=== PATIENT | female | born 1950 | race Caucasian/White ===

== ENCOUNTER → 2025-01-26 | Outpatient (CLI) | payer MEDICARE, SELFPAY ==
--- NOTE | 2025-01-26 | XR_ITS ---
Examination: Lumbar spine 4 views TECHNIQUE: AP, lateral, AP standing lateral flexion standing lateral extension 4 views Exam date and time: January 26, 2025 1240 hours INDICATIONS: Scoliosis since childhood back surgery 2022 FINDINGS: Transpedicular thoracolumbar stabilization Severe osteopenia Lumbar levoscoliosis 29 degrees No acute fracture Moderate thoracic spondylosis IMPRESSION: Extensive transpedicular thoracolumbar stabilization Severe osteopenia Lumbar levoscoliosis 29 degrees
--- NOTE | 2025-01-26 | XR_ITS ---
Examination: Thoracic spine 3 views Technique one AP lateral coned lateral upper dorsal spine 3 views Exam date and time: January 26, 2025 1239 hours INDICATIONS: Childhood history scoliosis back surgery 2022 FINDINGS: Severe osteopenia Thoracic dextroscoliosis 20 degrees Transpedicular extensive stabilization procedure the lower end of which is not included on these films Diffuse moderate thoracic degenerative disc disease IMPRESSION: Thoracic dextroscoliosis 20 degrees Diffuse moderate thoracic degenerative disc disease
--- NOTE | 2025-01-26 10:49 | XR_ITS ---
Examination:Right hip AP, lateral, AP pelvis 3 views Technique: Hip AP lateral, AP pelvis, 3 views Exam date and time:January 26, 2025 1120 hours INDICATIONS: Right hip pain 2 years. FINDINGS: Significant osteopenia Total right hip arthroplasty. Satisfactory alignment. No loosening of the prosthetic components IMPRESSION: Total right hip arthroplasty with satisfactory alignment.
--- NOTE | 2025-01-26 10:49 | XR_ITS ---
Examination: Lumbar spine 3 views TECHNIQUE: AP lateral coned lateral lower lumbar spine 3 views Exam date and time: January 26, 2025 at 1120 hours Comparison August 20, 2023 INDICATIONS: Scoliosis with back surgery 2022 FINDINGS: Severe osteopenia Lumbar levoscoliosis 31 degrees Extensive transpedicular stabilization with chronic deformities lower 3 lumbar levels No acute fracture No sunil cortical bone destruction Total right hip arthroplasty Plates over the right SI joint IMPRESSION: Severe osteopenia Lumbar levoscoliosis 31 degrees Extensive transpedicular thoracolumbar stabilization with adequate alignment
== END | disposition home or self-care (01) ==
PROVIDERS: PCP Physician Assistant; Referring Provider Orthopaedic Surgery Adult Reconstructive Orthopaedic Surgery; Visit Provider Neurological Surgery
DX: M85.88 Other specified disorders of bone density and structure, other site (principal); M41.86 Other forms of scoliosis, lumbar region; M25.551 Pain in right hip; Z96.641 Presence of right artificial hip joint; M41.84 Other forms of scoliosis, thoracic region; M51.34 Other intervertebral disc degeneration, thoracic region
CPT/HCPCS: 72072; 72100; 72120; 73502

== ENCOUNTER 2025-02-02 08:51 | Outpatient (AMB) | payer MEDICARE, SELFPAY ==
--- NOTE | 2025-02-02 09:08 | PD.ORTHCLVIS ---
Vital signs 02/02/25 09:09 Height 1.52 m Height Method Stated Weight 67.33 kg Weight Measurement Method Standing Scale BMI 29.0 BP 159/82 H Blood Pressure Source Automatic Cuff Blood Pressure Location Right Upper Arm Position Sitting Respiration 19 Pulse 67 Pulse Source Monitor Temp 97.4 F Temp Source Temporal Artery Scan Pulse Oximetry (%) 97 Oxygen Delivery Method Room Air Med/Allergies Allergies & Medications Allergies codeine Allergy (Intermediate, Verified 02/02/25 09:10) Vomiting Medication Reconciliation CHOLECALCIFEROL (VITAMIN D3) (VITAMIN D) 1 tab PO QDAY ##0 12/03/17 [History Confirmed 02/02/25] Vitamin B Complex 1 tab PO QDAY ##0 12/03/17 [History Confirmed 02/02/25] escitalopram oxalate 10 mg tablet (Lexapro) 10 mg PO HS #0 tabs 12/03/17 [History Confirmed 02/02/25] pregabalin 150 mg capsule (Lyrica) 150 mg PO BID ##90 12/03/17 [History Confirmed 02/02/25] doxycycline hyclate 100 mg capsule 100 mg PO BID #7 caps 04/23/23 [Rx Confirmed 02/02/25] nystatin-triamcinolone 100,000 unit/g-0.1 % topical cream 1 applic topical BID #60 grams 04/23/23 [Rx Confirmed 02/02/25] ibuprofen 600 mg tablet 600 mg PO Q8H PRN fever or pain #30 tabs 09/05/24 [Rx Confirmed 02/02/25] methylprednisolone 4 mg tablets in a dose pack (Medrol ([employer])) See Rx Instructions PO PER PKG DIR #21 tabs 02/02/25 [Rx] Exam Exam Patient is in no acute distress and is cooperative with the examination today. Patient has a normal mood and affect. Breathing is nonlabored. In no respiratory distress. Bilateral extremities were evaluated and demonstrates sensation intact to light touch. Palpable pedal pulses are present. No significant edema is present. Right hip demonstrates preserved range of motion. Incision is clean dry and intact. Leg lengths are equal. She has pain with flexion. She has no pain with logroll Left hip demonstrates preserved range of motion. She can internally rotate 20 degrees. Left knee is tender to palpation Assessment and Plan Problem List (1) Pain in left knee: Status: Acute Plan: Patient is a pleasant 74-year-old female with a left knee and right hip pain. We discussed different treatment options. I would first like to obtain x-rays of the left knee. The right hip actually looks good on x-rays. There is a dual mobility hip and is in good alignment position with no lucencies. The left knee demonstrates total knee replacement with a posterior stabilized implant in good alignment position. I do not see any evidence of lucent lines (2) Right hip pain: Status: Acute Advanced Care Planning Discussion Advance care planning discussed with:: patient MA Intake Visit Data Collection New Patient or Established: Established Patient (seen at [facility] [place] Reason for Visit:: RIGHT HIP PAIN AND LEFT KNEE PAIN Technician Chemical Cleaning Required: No Do You Feel Safe at Home: Yes Questionairres Past Medical History Past Medical History Have you ever been diagnosed with any of the following: Neurological Problems Seizures: No Migraine: No Cardiology Problems Congestive Heart Failure: No Hypertension: No Hypotension: No Respiratory Problems Chronic Obstructive Pulmonary Disease (COPD): Yes Asthma: No Sleep Apnea: No Smoking: No Smoking Exposure: No Genital/Urinary Problems Renal Disease: No Musculoskeletal Problems Arthritis: Yes Scoliosis: Yes Endocrine Problems Diabetes Mellitus Type 1: No Diabetes Mellitus Type 2: No Other Problems Blood Transfusions: No Blood Transfusion Reaction: No Anesthesia Reactions: No Cancer: No Surgical History Total Hip Replacement: Yes (RIGHT CRISELDA) Total Knee Replacement: Yes (LEFT TKA ) Subjective Visit Visit for: new patient, hip and knee Immunization / Flu Flu Vaccine in the Last 12 Months: Yes Flu Vaccine Exclusion Criteria: Already Received History of Present Illness Chief complaint: RIGHT HIP PAIN AND LEFT KNEE PAIN Lydai is a pleasant 74-year-old female with a history of severe scoliosis with multiple surgeries. She had a right total hip replacement as well as a left total knee replacement. She reports that both are hurting. She does not have any pain in the groin but she has pain with resisted flexion. For her knee she will also reports that there is some pain and was done 4 years ago. Personal History Red flag PMH: none BMI Counceling provided: Yes Pain Pain level (0-10): 10 Pain duration: CONSTANT Pain quality: sharp and tingling Pain timing: increases with activity Associated signs & symptoms: none Ambulatory data Ambulatory device: cane Treatments Improvement with previous injections: No Improvement with PT: Yes Improvement with NSAIDS: yes Review of Systems Review of Systems: All systems negative unless otherwise noted in HPI.
[2025-02-02 09:09] VITALS: BP 159/82; PULSE 67; RESP 19; TEMP 36.3; O2SAT 97; BMI 29.0
--- NOTE | 2025-02-02 09:24 | XR_ITS ---
Examination: Bilateral AP knees single view Left lateral knee axial left knee 2 views Exam technique: Bilateral AP knees standing single view Left lateral knee axial left knee 2 views total 3 views Exam date and time: February 02, 2025 0940 hours INDICATIONS: Patient fell 2 months ago with injury to the left knee, left knee pain FINDINGS: Moderate osteopenia Total left knee arthroplasty Satisfactory alignment No fracture involving either right or left knee IMPRESSION: No fracture involving either right or left knee
== END 2025-02-02 10:14 | disposition home or self-care (01) ==
LOC: HODSRG 08:52
PROVIDERS: PCP Physician Assistant; Referring Provider Physician Assistant; Supervising Provider Orthopaedic Surgery Adult Reconstructive Orthopaedic Surgery; Visit Provider Orthopaedic Surgery Adult Reconstructive Orthopaedic Surgery
DX: M25.562 Pain in left knee (principal); M25.551 Pain in right hip; M41.9 Scoliosis, unspecified
CPT/HCPCS: 73564; 99213; G0463

== ENCOUNTER → 2025-02-17 | Outpatient (CLI) | payer MEDICARE, SELFPAY ==
--- NOTE | 2025-02-17 10:26 | XR_ITS ---
Examination: PA lateral chest 2 views Technique: Upright PA lateral chest 2 views Exam date and time: February 17, 2025 1037 hrs. Comparison February 14, 2024 Indications: Shortness of breath beginning 2 years ago, 30 year smoking history. Findings: Normal heart size Mild scarring at the lung bases Extensive thoracolumbar transpedicular stabilization No pneumonia or pulmonary edema Impression: Suspicious for early pulmonary fibrosis at the lung bases, consider high resolution CT chest without contrast follow-up
[2025-02-17 11:05] LABS: Collection Type, Urine Clean Catch
[2025-02-17 11:38] LABS: Basophils # (Auto) 0.1 Thou/mm3 (0.0-0.2); Basophils % (Auto) 2 % (0-2.5); Eosinophils # (Auto) 0.2 Thou/mm3 (0.0-0.5); Eosinophils % (Auto) 4 % (0-10); Hematocrit 35.2 % (36.0-46.0); Hemoglobin 11.4 g/dL (12.0-16.0); Immature Granulocytes % (Auto) 1 % (0-0); Immature Granulocytes Auto 0.03 Thou/mm3 (0.00-0.00); Lymphocytes # (Auto) 1.6 Thou/mm3 (1.0-4.8); Lymphocytes % (Auto) 25 % (10-50); Mean Corpuscular HGB Conc 32.4 g/dl (31.0-37.0); Mean Corpuscular Hemoglobin 31.1 pg (25.0-35.0); Mean Corpuscular Volume 96 fL (80-100); Monocytes # (Auto) 0.6 Thou/mm3 (0.0-0.8); Monocytes % (Auto) 8 % (0-12); Neutrophils % (Auto) 61 % (37-80); Nucleated Red Blood Cell % 0 /100 WBC (0); Platelet Count 211 Thou/mm3 (140-440); RDW Standard Deviation 51.7 fL (36.4-46.3); Red Blood Count 3.67 Miln/mm3 (4.00-5.20); White Blood Count 6.5 Thou/mm3 (3.6-11.0)
[2025-02-17 11:39] LABS: Bilirubin,Urine Negative (Negative); Blood,Urine Negative (Negative); Clarity,Urine Clear (Clear/Hazy); Color,Urine Yellow (Lt Yel-Yel); Glucose, Urine Negative (Negative); Ketones,Urine Negative (Negative); Leukocyte Esterase,Urine Positive (Negative); Nitrite,Urine Negative (Negative); Protein,Urine Trace (Neg - Trace); RBC,Urine 4 /hpf (0-3); Specific Gravity,Urine 1.026 (1.001-1.035); Squamous Epithelial Cell,Urine 5 /hpf (0-5); Urobilinogen,Urine Negative mg/dL (0.0-1.0); WBC,Urine 5 /hpf (0-5)
[2025-02-17 11:50] LABS: Glucose Estimated Average 120 mg/dL (80-131); Hemoglobin A1C 5.8 % Hgb (4.8-6.0)
[2025-02-17 11:56] LABS: Creatinine MALB Rnd Ur 165 mg/dL (30-125); Microalbumin Creat Ratio 7 mg/gCrea (<30); Microalbumin, Random Urine 11 mg/L (0-300)
[2025-02-17 12:00] LABS: Cardiac Risk Estimate 3.8 RATIO (3.7-5.6); Cholesterol 233 mg/dL (132-200); Free T4 (Free Thyroxine) 1.12 ng/dL (0.89-1.76); HDL Cholesterol 62 mg/dL (40-60); LDL Cholesterol,Calculated 145 mg/dL (0-130); Thyroid Stimulating Hormone 1.69 uIU/mL (0.55-4.78); Triglycerides 131 mg/dL (30-150)
[2025-02-17 12:07] LABS: Vitamin B12 291 pg/mL (211-911)
[2025-02-17 12:23] LABS: Vitamin D 25 Hydroxy Total 29.2 ng/mL (7.3-40.2)
== END | disposition home or self-care (01) ==
LOC: CDIM 10:01 → COPL 10:46
PROVIDERS: PCP Family Medicine; Referring Provider Physician Assistant; Visit Provider Radiology Diagnostic Radiology
DX: R06.02 Shortness of breath (principal); E78.5 Hyperlipidemia, unspecified; E55.9 Vitamin D deficiency, unspecified; R53.83 Other fatigue
CPT/HCPCS: 36415; 71046; 80061; 81001; 82043; 82306; 82570; 82607; 83036; 84439; 84443; 85025

== ENCOUNTER → 2025-03-09 | Outpatient (CLI) | payer MEDICARE, SELFPAY ==
[2025-03-09 12:05] LABS: Albumin, Serum 4.4 gm/dL (3.4-4.8); Anion Gap 12 (7-16); BUN/Creatinine Ratio 15 Ratio (12-20); Blood Urea Nitrogen 19 mg/dL (9-23); Calcium 10.1 mg/dL (8.3-10.6); Calcium (Corrected) 10.1 mg/dL (8.5-10.1); Carbon Dioxide 23.3 mMol/L (20.0-31.0); Chloride 109 mMol/L (98-107); Creatinine (Component) 1.3 mg/dL (0.6-1.3); Glucose 88 mg/dL (74-106); Osmolality,Calculated 288 (275-295); Sodium 144 mMol/L (136-145); eGFR 44 See Note
== END | disposition home or self-care (01) ==
LOC: COPL 10:53
PROVIDERS: PCP Physician Assistant; Referring Provider Neurological Surgery; Visit Provider Neurological Surgery
DX: Z01.818 Encounter for other preprocedural examination (principal)
CPT/HCPCS: 36415; 80069

== ENCOUNTER → 2025-03-10 | Outpatient (CLI) | payer MEDICARE, SELFPAY ==
--- NOTE | 2025-03-10 09:47 | XR_ITS ---
Examination: CT lumbar spine, without contrast. 2-D sagittal reconstructions. 2-D coronal reconstructions. 3-D reconstructions. Date and time of exam:March 10, 2020 5:10 AM Comparison October 31, 2008 INDICATIONS: Chronic lower back pain 15 back surgeries CTDI: vol (mGy):25.2 DLP: (mGycm):1080 Technique: Multiple 1.25 mm axial sections of the lumbar spine without intravenous contrast have been obtained. 2-D sagittal and coronal reconstructions have been obtained. 3-D reconstructions have been obtained. Low dose protocols were performed. One or more of the following dose reduction techniques were used; automated exposure control, adjustment of the mA and/or KV according to patient size, use of iterative reconstruction technique. Findings: Severe osteopenia Extensive transpedicular thoracic lumbar stabilization extending to the sacrum Severe short angle lower lumbar levoscoliosis 35 degrees No acute vertebral body fracture Axial images demonstrate no focal lumbar disc protrusion Study is limited by significant artifact from the orthopedic fixation devices IMPRESSION: Severe osteopenia Extensive transpedicular thoracic lumbar stabilization extending to the sacrum Severe short angle lower lumbar levoscoliosis 35 degrees No acute vertebral body fracture
== END | disposition home or self-care (01) ==
PROVIDERS: PCP Physician Assistant; Referring Provider Neurological Surgery; Visit Provider Neurological Surgery
DX: M85.88 Other specified disorders of bone density and structure, other site (principal)
CPT/HCPCS: 72131

== ENCOUNTER → 2025-03-13 | Outpatient (CLI) | payer MEDICARE, SELFPAY ==
--- NOTE | 2025-03-13 13:15 | XR_ITS ---
Examination: Bone scan whole body, radioisotope Date and time of exam: March 13, 2025 1244 hours Comparison October 13, 2008 INDICATIONS: Patient fell 6 months ago with injury to the right hip and leg, pain Technique: Study has been performed with intravenous administration of 22.2 mci 99M technetium MDP. Anterior, posterior whole body images are obtained. Images have been obtained including the lower extremities. Findings: Multiple areas of abnormal increased isotope accumulation including upper lumbar spine, mid and upper dorsal spine, lower right anterior rib, possibly body the sternum, right shoulder, bilateral knees and left foot IMPRESSION: Positive bone scan although nonspecific, recommend plain films lumbar thoracic spine follow-up
== END | disposition home or self-care (01) ==
LOC: SNUC 09:27
PROVIDERS: PCP Physician Assistant; Referring Provider Neurological Surgery; Visit Provider Neurological Surgery
DX: R93.7 Abnormal findings on diagnostic imaging of other parts of musculoskeletal system (principal)
CPT/HCPCS: 78306; A9503

== ENCOUNTER → 2025-03-18 | Outpatient (CLI) | payer MEDICARE, SELFPAY ==
--- NOTE | 2025-03-18 14:45 | XR_ITS ---
Examination: MRI lumbar spine, without intravenous contrast. MRI lumbar spine , with intravenous contrast. Exam date and time: 07/19/2025 1451 hours INDICATIONS: Low back pain radiating down the right leg after falling October 2024 Technique: Multiple axial, sagittal and coronal images of the lumbar spine have been obtained with the Siemens high-resolution 1.5 Katia MRI scanner. Images obtained included T2 weighted fat suppressed sagittal sections, TR 3500, TE 46, T2 weighted coronal fat suppressed images, TR 3050, TE 84, T2-weighted transverse fat suppressed images, TR 30-60, TE 63, proton density transverse images, TR 4720, TE 46, and T1 weighted coronal images, TR 560, TE 13. Axial, sagittal and coronal images are obtained post intravenous injection 13 cc gadolinium. Findings: Short angled lumbar levoscoliosis 30 degrees Transpedicular fixation screws extending from the sacrum to the lower thoracic vertebral bodies generating very large extensive magnetic susceptibility artifacts Extensive laminectomies No acute lumbar fracture. L5-S1 no disc protrusion L4-L5 no disc protrusion L3-L4 no disc protrusion L2-L3 significant spinal stenosis, sagittal image 12 with marked reduced AP dimension canal and protrusion of the posterior inferior L3 and L2 vertebral bodies significantly narrowing the thecal side Impression: L2-L3 significant spinal stenosis CT lumbar myelography would best assess severity of the spinal stenosis at the L2-L3 level as clinically warranted
== END | disposition home or self-care (01) ==
LOC: SMRI 14:41
PROVIDERS: PCP Physician Assistant; Referring Provider Neurological Surgery; Visit Provider Neurological Surgery
DX: M48.061 Spinal stenosis, lumbar region without neurogenic claudication (principal)
CPT/HCPCS: 72158; A9579

== ENCOUNTER 2025-09-11 11:32 | Emergency (ER) | payer MEDICARE, SELFPAY ==
--- NOTE | 2025-09-11 | XR_ITS ---
Examination: MRI lumbar spine without contrast Date and time of exam: 09/11/2025 at 2:03 p.m. COMPARISON: MRI lumbar spine 03/18/2025 Technique: Multiple MRI axial and sagittal sections lumbar spine. Sagittal T2-weighted images, TR 3500, TE 118 T1 weighted transverse sections, TR 688 T8.5, T2-weighted sagittal sections T1 weighted sagittal sections TR 621, TE 30 T2 axial sections, TR 4, 190, TE 84. Findings: Redemonstration of severe short angle lumbar levoscoliosis centered at L3-L4, chronic compression deformities of L3 and L4 with fracture and retropulsion, and severe degenerative disc and endplate changes from L2-L5. Interbody devices reidentified at L5-S1, and a right-sided S1 screw remains in place. Instrumented fusion of the bilateral SI joints is present. Interval removal of previously visualized bilateral pedicle screws and rods throughout the remainder the lumbar spine and visualized lower thoracic spine. Redemonstration of central canal decompression of the lumbar spine via laminectomies. 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 The collection has increased in size since prior MRI and may potentially be infected. There is also progressive heterogeneous cystlike expansion of the L3-4 vertebral bodies at site of previous pedicle screw which contributes to the thecal sac compression, left side greater than right. High-grade thecal sac compression is present at the level of L3-4 due to the combined effects of the chronic vertebral fracture retropulsion and the large complex seroma with resultant crowding of the cauda equina nerve roots. The thecal sac above this level is widely patent. The visualized distal spinal cord demonstrates normal morphology and signal intensity with the conus medullaris terminating around L1-L2. The thecal sac below the stenosis is patent as well. Note is made that there is peripheral distribution/splaying of the cauda equina nerve roots which could be due to an arachnoid cyst or arachnoiditis within the inferior portion of the thecal sac between L4-S1. No acute fractures are seen. No bone destruction concerning for discitis osteomyelitis. No abdominal aortic aneurysm, no retroperitoneal lymphadenopathy or hematoma. No hydronephrosis. IMPRESSION: High-grade thecal sac compression at the level of L3-4 due to the combined effects of the chronic vertebral fracture retropulsion and the large complex seroma which potentially could be infected, with resultant crowding of the cauda equina nerve roots. Progressive heterogeneous cystlike expansion of the L3-4 vertebral bodies at site of previous pedicle screw which contributes to the thecal sac compression, left side greater than right, concerning for infection until proven otherwise. The thecal sac below the stenosis is patent. Note is made that there is peripheral distribution/splaying of the cauda equina nerve roots which could be due to an arachnoid cyst or arachnoiditis within the inferior portion of the thecal sac between L4-S1. No acute fractures.
[2025-09-11 11:48] VITALS: PULSE 86; RESP 18; O2SAT 99; BMI 25.4
[2025-09-11 12:01] VITALS: BP 139/69; PULSE 86; RESP 16; TEMP 36.8; O2SAT 97
[2025-09-11] MEDS: oxyCODONE HCL 5 MG IR TAB PO (12:06)
[2025-09-11 12:21] LABS: Basophils # (Auto) 0.1 Thou/mm3 (0.0-0.2); Basophils % (Auto) 1 % (0-2.5); Eosinophils # (Auto) 0.1 Thou/mm3 (0.0-0.5); Eosinophils % (Auto) 1 % (0-10); Hematocrit 32.6 % (36.0-46.0); Hemoglobin 10.2 g/dL (12.0-16.0); Immature Granulocytes Auto 0.08 Thou/mm3 (0.00-0.00); Lymphocytes # (Auto) 2.1 Thou/mm3 (1.0-4.8); Lymphocytes % (Auto) 20 % (10-50); Mean Corpuscular HGB Conc 31.3 g/dl (31.0-37.0); Mean Corpuscular Hemoglobin 28.3 pg (25.0-35.0); Mean Corpuscular Volume 90 fL (80-100); Monocytes # (Auto) 0.5 Thou/mm3 (0.0-0.8); Monocytes % (Auto) 5 % (0-12); Neutrophils # (Auto) 7.7 Thou/mm3 (1.8-7.7); Neutrophils % (Auto) 73 % (37-80); Nucleated Red Blood Cell # 0.00 Thou/mm3 (0.00-0.00); Nucleated Red Blood Cell % 0 /100 WBC (0); Platelet Count 386 Thou/mm3 (140-440); RDW Standard Deviation 61.2 fL (36.4-46.3); Red Blood Count 3.61 Miln/mm3 (4.00-5.20); White Blood Count 10.5 Thou/mm3 (3.6-11.0)
[2025-09-11 12:49] LABS: Alanine Aminotransferase 10 U/L (10-49); Albumin, Serum 3.9 gm/dL (3.4-4.8); Albumin/Globulin Ratio 1.3 (1.2-2.2); Alkaline Phosphatase 75 U/L (46-116); Anion Gap 9 (7-16); Aspartate Amino Transferase 18 U/L (0-34); BUN/Creatinine Ratio 17 Ratio (12-20); Bilirubin,Total 0.3 mg/dL (0.3-1.2); Blood Urea Nitrogen 15 mg/dL (9-23); Calcium 9.9 mg/dL (8.3-10.6); Calcium (Corrected) 10.0 mg/dL (8.5-10.1); Carbon Dioxide 23.6 mMol/L (20.0-31.0); Chloride 110 mMol/L (98-107); Creatinine (Component) 0.9 mg/dL (0.6-1.3); Estimated Creatinine Clearance 44.7 mL/min (>60); Globulin 3.0 gm/dL (2.3-3.5); Glucose 89 mg/dL (74-106); Osmolality,Calculated 284 (275-295); Potassium 4.5 mMol/L (3.4-5.1); Sodium 143 mMol/L (136-145); Total Protein 6.9 gm/dL (5.7-8.2); eGFR > 60 See Note
[2025-09-11 13:54] LABS: Collection Type, Urine Clean Catch
[2025-09-11 14:14] LABS: Bacteria,Urine 2+; Bilirubin,Urine Negative (Negative); Blood,Urine Negative (Negative); Color,Urine Lt-Yellow (Lt Yel-Yel); Glucose, Urine Negative (Negative); Ketones,Urine 1+ (Negative); Leukocyte Esterase,Urine Positive (Negative); Nitrite,Urine Positive (Negative); PH,Urine 7.0 (5.0-7.0); Protein,Urine Negative (Neg - Trace); RBC,Urine 1 /hpf (0-3); Specific Gravity,Urine 1.023 (1.001-1.035); Squamous Epithelial Cell,Urine 2 /hpf (0-5); Urobilinogen,Urine Negative mg/dL (0.0-1.0); WBC,Urine 2 /hpf (0-5)
[2025-09-11 14:17] LABS: Clarity,Urine Hazy (Clear/Hazy)
[2025-09-11 14:49] VITALS: BP 142/64; PULSE 77; RESP 20; TEMP 36.8; O2SAT 98
[2025-09-11] MEDS: oxyCODONE HCL 5 MG IR TAB 10 MG PO (15:35)
[2025-09-11 15:39] VITALS: BP 148/66; PULSE 81; RESP 18; O2SAT 98
--- NOTE | 2025-09-11 15:40 | EDNOTE_ITS ---
<Statement entered by Silvia Mendenhall MD - 09/13/25 16:17> As co-signing physician, I was present and available for consult prn. I concur with the plan and care as documented by the midlevel provider. ED General RME/HPI General Chief complaint: Back Pain/Injury Stated complaint: BACK PAIN Time Seen by Provider: 09/11/25 11:39 Arrival date/time: 09/11/25 11:32 CC: Acute on chronic low back pain HPI insidious onset 3 days ago of low back pain with progressive increase in severity which is made her much more reluctant to use her lower extremities. The patient is all ready wheelchair-bound secondary to chronic back pain and 18 surgeries , to the low back regarding pain over the past 18 years. The patient takes Tylenol with tramadol use for breakthrough pain. Patient denies saddle anesthesia bowel or bladder symptoms but is complaining of tingling in her lower extremities on and off for some time . Patient denies heavy lifting torso rotation or bending for the initiation of this acute on chronic back pain. Patient denies worsening of the baseline weakness in her lower extremities. Patient has a back specialist in [facility]. Related Data Home Medications ?Medication ?Instructions ?Recorded ?Confirmed CHOLECALCIFEROL (VITAMIN D3) 1 tab PO QDAY ##0 8 02/02/25 (VITAMIN D) Vitamin B Complex 1 tab PO QDAY ##0 12/03/17 0 02/02/25 escitalopram oxalate 10 mg tablet 10 mg PO HS #0 tabs 12/03/17 02/02/25 (Lexapro) pregabalin 150 mg capsule (Lyrica) 150 mg PO BID ##90 12/03/17 02/02/25 Previous Rx's ?Medication ?Instructions ?Recorded doxycycline hyclate 100 mg capsule 100 mg PO BID #7 ca ps 04/23/23 nystatin-triamcinolone 100,000 1 applic topical BID #6 0 grams 04/23/23 unit/g-0.1 % topical cream ibuprofen 600 mg tablet 600 mg PO Q8H PRN fever or p ain 09/05/24 #30 tabs methylprednisolone 4 mg tablets in See Rx Instructions PO PER PKG DIR 02/02/25 a dose pack (Medrol ([employer])) #21 tabs oxycodone 10 mg tablet 10 mg PO Q8H PRN pain #10 ta bs 09/11/25 Allergies Allergy/AdvReac Type Severity Reaction Status Date / Time codeine Allergy Intermediate Vomiting Verified 02/02/25 09:10 Review of Systems Review of Systems Narrative Review of Systems: GEN: No fever, no chills, no weight loss EYES: No discharge, no visual changes, no pain HEENT: No ear pain, no congestion, no sore throat PULM: No shortness of breath, no cough, no congestion CV: No chest pain, no dyspnea on exertion, no palpitations GI: No nausea, no vomiting, no diarrhea, no pain, no constipation : No frequency, no urgency, no dysuria MUSC/SKEL: No joint pain, + back pain SKIN: No rash PSYCH: No hallucinations, no depression HEME/LYMPH: No easy bleeding or bruising tendencies NEURO: No weakness, no headache Past Medical History Past Medical History NEUROLOGIC: Negative Neurological Disorders, Seizures or Migraine CARDIAC: Negative Cardiac Disorders, Congestive Heart Failure, Hypertension or Hypotension RESPIRATORY: Positive Chronic Obstructive Pulmonary Disease (COPD); Negative Respiratory Disorders, Asthma, Sleep Apnea, Smoking or Smoking Exposure GASTROINTESTINAL: Positive Gastrointestinal Disorders (CONSTIPATION) GENITOURINARY: Negative Genitourinary Disorders or Renal Disease MUSCULOSKELETAL: Positive Musculoskeletal Disorders, Arthritis and Scoliosis ENDOCRINE: Negative Endocrine Disorders, Diabetes Mellitus Type 1 or Diabetes Mellitus Type 2 OTHER HISTORY: Negative Blood Transfusions, Blood Transfusion Reaction, Anesthesia Reactions or Cancer Surgical History SURGICAL: Positive Section (X2); Negative Cardiac Surgery or Endocrine Surgery Social History SMOKING STATUS: Never smoker ED Exam Narrative Physical exam: [General: In moderate discomfort but not in any acute distress Head normocephalic HEENT: Eyes pupils are PERRLA EOMs are intact mouth pink moist membranes uvula is midline swallow symmetrical phonation is normal all the subsystems of HEENT are within acceptable limits Neck is supple nontender Chest equal chest rise nontender to palpation Respiratory: Clear to auscultation no wheezes crackles or rubs CV: Rate rhythm is regular no murmurs rubs or clicks Abdomen is soft nontender no masses positive bowel sounds all 4 quadrants Back: No CVA tenderness no spinous process tenderness from cervical spine thoracic and lumbar spine Skin: Intact no petechiae rash induration ulceration or crepitus Extremities: Decreased range of motion of the lower extremity secondary to low back pain. Cap refill in the digits less than 2 seconds neurosensory intact. Moving all other extremities against resistance cap refill less than 2 seconds neurosensory intact Neuro: Awake alert oriented x3 Glascow coma 15 no focal deficits] Course Course Course Narrative: Patient's findings on his MRI discussed with the patient, there is also discussed with Dr. MENDENHALL attending who agree that this is not an acute or emergent finding that requires immediate intervention. The patient can be referred back to naval architect specialist or neurosurgeon in [place]. Patient advised to get a copy of her complete medical records including a disk of the MRI to take with her for follow-up. Patient is currently taking Tylenol and using her tramadol for breakthrough pain at this time I am asking her to reverse her pain management modality to taking tramadol and will give her additional medication for breakthrough pain. Quality Measures none Orders Category Date Time Status MRI Screening NOW Care 09/11/25 11:44 Active MR lumbar spine wo con Stat Exams 09/11/25 Completed C-Reactive Protein Stat Lab 09/11/25 12:00 Completed CBC Stat Lab 09/11/25 12:00 Completed CMP [Comprehensive Metabolic Panel] Stat Lab 09/11/25 12:00 Completed ESR [Sed Rate (ESR)] Stat Lab 09/11/25 12:00 Completed Urinalysis Stat Lab 09/11/25 13:50 Completed oxyCODONE IR Med 09/11/25 15:07 Discontinued 10 mg PO X1 ONE oxyCODONE IR Med 09/11/25 11:48 Discontinued 5 mg PO X1 ONE Vital Signs Vital signs: Vital Signs Temperature 98.3 F 09/11/25 12:01 Pulse Rate 86 09/11/25 12:01 Respiratory Rate 16 09/11/25 12:01 Blood Pressure 139/69 H 09/11/25 12:01 Pulse Oximetry (%) 97 09/11/25 12:01 Oxygen Delivery Method Room Air 09/11/25 12:01 Discharge Plan Plan Patient Disposition: HOME (Self Care) Patient condition on transfer: Stable Prescriptions/Referrals Prescriptions/Med Rec: No Action methylprednisolone [Medrol ([employer]ell)] 4 mg tablets,dose pack See Rx Instructions PO PER PKG DIR Qty: 21 0RF Rx Instructions: PO PER PKG DIR escitalopram oxalate [Lexapro] 10 MG tablet 10 mg PO HS Qty: 0 pregabalin [Lyrica] 150 MG capsule 150 mg PO BID Qty: 90 CHOLECALCIFEROL (VITAMIN D3) (VITAMIN D) 10,000 UNIT capsule 1 tab PO QDAY Qty: 0 Vitamin B Complex 1 CAP capsule 1 tab PO QDAY Qty: 0 doxycycline hyclate 100 mg capsule 100 mg PO BID Qty: 7 0RF nystatin-triamcinolone 100,000-0.1 unit/g-% cream 1 applic topical BID Qty: 60 0RF ibuprofen 600 mg tablet 600 mg PO Q8H PRN (Reason: fever or pain) Qty: 30 0RF Referrals: Cam Celis [Primary Care Provider] - In 1 week Problem List Clinical Impression: Acute on chronic low back pain Patient/Caregiver Discharge Instructions Education Materials: ED Chronic Pain Additional Instructions: Switch to the tramadol as your regular pain management and use the medication prescribed for breakthrough pain. Follow-up as quickly as possible with your subspecialists we have given you copies of everything. If there is weakness in your lower extremities not necessarily pain but weakness return immediately to the emergency room for reevaluation. Print Language: Icelandic Stand Alone Forms: [employer] Info., Work/School Release, Patient Portal Info Letter PA/WILLIAM Supervising Physician PA/WILLIAM Supervising Physician: Keanu Damico ENP [facility] Clinical Information Provided by: patient and EMS Medical [facility] Meds/Rx considered, not ordered None Labs/Rad/Tests considered, not ordered None Chronic Illness/Social Conditions Explain: Chronic low back pain EKG EKG not done Labs Labs: interpreted by la Lab(s) Interpretation(s): CBC shows no leukocytosis, and stable anemia with a hemoglobin of 10.2 hematocrit of 32.6 respectively platelets at 386. CMP shows no significant electrolyte imbalances renal impairment transaminitis or T. bili elevation. Urine is negative other than 1+ protein. Leukocyte esterase +2+ bacteria note: Patient just finished a round of antibiotics for a UTI . CRP is 3.0 ESR is 96. Imaging Imaging interpretation: interpreted by me Imaging Interpretation(s): MRI of the spine shows the patient has a seroma impinging on the cauda equina nerve roots resulting in thecal sac compression left side greater than right. Medication Administration(s) Medication Administration History Discontinued Medications Oxycodone HCl (Oxycodone Hcl 5 Mg Ir Tab) 5 mg PO X1 ONE; Protocol Stop: 09/11/25 11:49 Last Admin: 09/11/25 12:06 Dose: 5 mg Documented By: BY Oxycodone HCl (Oxycodone Hcl 5 Mg Ir Tab) 10 mg PO X1 ONE Stop: 09/11/25 15:08 Last Admin: 09/11/25 15:35 Dose: 10 mg Documented By: BY None Diagnosis Differential Diagnosis ED Complaint MDM: Epidural abscess cauda equina syndrome compression fracture
[2025-09-11 15:58] LABS: C-Reactive Protein 3.0 mg/dL (0.0-0.9)
[2025-09-11 16:32] LABS: Sed Rate (ESR) 96 mm/hr (0-30)
[2025-09-11 17:15] VITALS: BP 144/68; PULSE 85; RESP 18; O2SAT 93
== END 2025-09-11 18:04 | disposition home or self-care (01) ==
PROVIDERS: Registered Nurse General Practice; Emergency Provider Emergency Medicine; PCP Physician Assistant
DX: M54.50 Low back pain, unspecified (principal); G89.29 Other chronic pain; Z99.3 Dependence on wheelchair
CPT/HCPCS: 36415; 72148; 80053; 81001; 85025; 85652; 86140; 99283; A9270